=== PATIENT | female | born 1975 | race Caucasian/White ===

== ENCOUNTER 2020-11-21 14:01 | Inpatient (IN) | payer SELFPAY ==
[2020-11-21 15:12] LABS: Protime INR 1.18
[2020-11-21 15:15] LABS: Absolute Lymphocytes (CBC) 0.6 K/uL (0.7-4.9); Basophils % 0.1 % (0-1.3); Hematocrit 38.9 % (36.0-45.0); Lymphocytes % 7.9 % (15.3-44.8); MPV 7.2 fL (7.6-11.3); RBC Red Blood Cell Count 4.73 M/uL (3.86-4.86)
--- NOTE | 2020-11-21 15:19 | RAD REPORT ---
EXAM DESCRIPTION: RAD - Chest Single View - 11/21/2020 3:11 pm CLINICAL HISTORY: COUGH TECHNIQUE: AP portable chest image was obtained 11/21/2020 3:11 pm . FINDINGS: Lung volumes are low. Extensive airspace opacification is present slightly worse in the ri ght lung field. Lung findings are exaggerated due to the low lung volumes. In the acute clinical setting, COVID-19 pneumonia would be the primary consideration. Trachea is midl ine. There is no cavitation or mass in the lung parenchyma. Heart and vasculature are normal. No love urable pleural effusion and no pneumothorax. No acute bony abnormality seen. No acute aortic findings suspected. IMPRESSION: Moderate severity bilateral pneumonia pattern. In the current clinical environment, COVI D-19 pneumonia would be the primary consideration.
[2020-11-21 15:27] LABS: ALT/SGPT 94 U/L (12-78); AST/SGOT 55 U/L (15-37); Albumin 2.9 g/dL (3.4-5.0); Alkaline Phosphatase 80 U/L (45-117); BUN Blood Urea Nitrogen 10 mg/dL (7-18); Bicarbonate 29 mmol/L (21-32); Bilirubin Direct < 0.1 mg/dL (0-0.2); Bilirubin Total 0.3 mg/dL (0.2-1.0); Glucose Level 114 mg/dL (74-106); Magnesium 2.2 mg/dL (1.8-2.4); Potassium 3.8 mmol/L (3.5-5.1); Protein, Total 8.6 g/dL (6.4-8.2); Sodium Level 138 mmol/L (136-145)
[2020-11-21] MEDS ORDERED: dexAMETHasone 10 MG/ML VIAL ONE (15:41)
--- NOTE | 2020-11-21 16:05 | EDPHYS ---
Physician Documentation [facility] Name: Santa Stroud Age: 45 yrs Sex: Female : 1975 Arrival Date: 11/21/2020 Time: 14:02 Bed 13 Private MD: ED Physician Mal Hugo HPI: 11/21 14:32 This 45 yrs old Unknown Female presents to ER via Ambulatory with complaints of Covid + sp3 Diff Breathing. 14:32 45-year-old female with no significant medical problems on buspirone now presents sp3 approximately 7 days after being diagnosed with COVID-19 at [place] emergency department with chief complaint shortness of breath that is progressing along with cough and congestion and headache. Multiple family members also have COVID-19. Patient was not vaccinated for Covid. Patient denies chest pain, focal neuro symptoms, weakness, bleeding, hematuria, abdominal pain, loss of taste or smell, nausea, vomiting, diarrhea, or any other symptoms on review of systems at this time. Patient has room air pulse oxygenation of 71% on room air at triage where I saw the patient and patient is being placed in a room at this time and placed on oxygen.. Historical: - Allergies: 14:24 No Known Allergies; hb ROS: 14:34 Eyes: Negative for injury, pain, redness, and discharge, ENT: Negative for injury, sp3 pain, and discharge, Neck: Negative for injury, pain, and swelling, Cardiovascular: Negative for chest pain, palpitations, and edema, Abdomen/GI: Negative for abdominal pain, nausea, vomiting, diarrhea, and constipation, Back: Negative for injury and pain, Skin: Negative for injury, rash, and discoloration, Neuro: Negative for headache, weakness, numbness, tingling, and seizure, Allergy/Immunology: Negative for hives, rash, and allergies, Endocrine: Negative for neck swelling, polydipsia, polyuria, polyphagia, and marked weight changes, Hematologic/Lymphatic: Negative for swollen nodes, abnormal bleeding, and unusual bruising. 14:34 Constitutional: Positive for body aches, chills, fatigue, Negative for fever. 14:34 Respiratory: Positive for cough, dyspnea on exertion, shortness of breath. Exam: 14:35 Head/Face: Normocephalic, atraumatic. Eyes: Pupils equal round and reactive to light, sp3 extra-ocular motions intact. Lids and lashes normal. Conjunctiva and sclera are non-icteric and not injected. Cornea within normal limits. Periorbital areas with no swelling, redness, or edema. ENT: Nares patent. No nasal discharge, no septal abnormalities noted. External auditory canals are clear. Oropharynx with no redness, swelling, or masses, exudates, or evidence of obstruction, uvula midline. Mucous membranes moist. Neck: Trachea midline, no thyromegaly or masses palpated, and no cervical lymphadenopathy. Supple, full range of motion without nuchal rigidity, or vertebral point tenderness. No Meningismus. Abdomen/GI: Soft, non-tender, with normal bowel sounds. No distension or tympany. No guarding or rebound. No evidence of tenderness throughout. Back: No spinal tenderness. No costovertebral tenderness. Full range of motion. Skin: Warm, dry with normal turgor. Normal color with no rashes, no lesions, and no evidence of cellulitis. MS/ Extremity: Pulses equal, no cyanosis. Neurovascular intact. Full, normal range of motion. Neuro: Awake and alert, GCS 15, oriented to person, place, time, and situation. Cranial nerves II-XII grossly intact. Motor strength 5/5 in all extremities. Sensory grossly intact. Cerebellar exam normal. Normal gait. Psych: Awake, alert, with orientation to person, place and time. Behavior, mood, and affect are within normal limits. 14:35 Constitutional: The patient appears anxious. 14:35 Cardiovascular: Rate: tachycardic, Rhythm: regular, Edema: is not appreciated. 14:35 Respiratory: Respirations: labored breathing, Breath sounds: rhonchi, that are mild, are scattered. Vital Signs: 14:23 BP 147 / 89; Pulse 119; Resp 34; Temp 98.7; Pulse Ox 71% on R/A; Weight 113.4 kg; hb Height 5 ft. 4 in. (162.56 cm); Pain 8/10; 15:07 BP 105 / 82; Pulse 102; Resp 25; Temp 98.5(O); Pulse Ox 80% on 5 lpm NC; Weight 113 kg; ld1 Height 5 ft. 7 in. (170.18 cm); Pain 0/10; 15:22 Pulse 93; Resp 22; Pulse Ox 89% on 15% Non-rebreather mask; ld1 16:50 BP 116 / 78; Pulse 86; Resp 32; Pulse Ox 93% on 100% BiPAP; ld1 15:07 Body Mass Index 39.02 (113.00 kg, 170.18 cm) ld1 MDM: 14:23 Patient medically screened. sp3 14:36 ED course: Will place patient on oxygen to normalize oxygenation depending on O2 sp3 requirement will disposition home on home O2 versus admission to the hospital. Additional medications like steroids and Regeneron will be considered once work-up is complete. At this point I do not believe patient has a secondary process including acute coronary syndrome, bacterial pneumonia, pulmonary embolism, or any other significant critical diagnosis at this time.. 15:31 ED course: 15 L nonrebreather mask and patient still has an oxygenation level of 88% on sp3 room air. Will consult with respiratory on possible further escalation of oxygen delivery. Will CODE STATUS and intubation with patient as well.. 11/21 14:25 Order name: Basic Metabolic Panel sp3 11/21 14:25 Order name: CBC with Diff sp3 11/21 14:25 Order name: LFT's; Complete Time: 16:00 sp3 11/21 14:25 Order name: Magnesium; Complete Time: 16:00 sp3 11/21 14:25 Order name: PT-INR; Complete Time: 16:00 sp3 11/21 14:25 Order name: Basic Metabolic Panel; Complete Time: 16:00 EDMS 11/21 17:08 Order name: C-Reactive Protein EDMS 11/21 17:08 Order name: C-Reactive Protein EDMS 11/21 18:40 Order name: CBC Smear Scan EDMS 11/21 19:03 Order name: C-Reactive Protein EDMS 11/21 19:29 Order name: Procalcitonin EDMS 11/21 21:27 Order name: Glucose, Ancillary Testing EDMS 11/22 02:46 Order name: D-Dimer EDMS 11/22 02:47 Order name: CBC with Automated Diff EDMS 11/21 14:25 Order name: XRAY Chest (1 view); Complete Time: 16:00 sp3 11/21 17:10 Order name: Regular EDMS 11/22 03:12 Order name: Ferritin EDMS 11/22 08:05 Order name: Glucose, Ancillary Testing EDMS 11/22 12:16 Order name: Glucose, Ancillary Testing EDMS 11/22 17:02 Order name: Glucose, Ancillary Testing EDMS 11/22 22:20 Order name: Glucose, Ancillary Testing EDMS 11/23 03:02 Order name: CBC with Automated Diff EDMS 11/23 03:24 Order name: Comprehensive Metabolic Panel EDMS 11/23 03:24 Order name: C-Reactive Protein EDMS 11/23 03:24 Order name: Magnesium EDMS 11/23 03:24 Order name: Ferritin EDMS 11/23 07:57 Order name: Glucose, Ancillary Testing EDMS 11/23 09:21 Order name: RAD EDMS 11/23 13:09 Order name: Glucose, Ancillary Testing EDMS 11/21 14:25 Order name: Cardiac monitoring; Complete Time: 15:05 sp3 11/21 14:25 Order name: IV Saline Lock; Complete Time: 15:05 sp3 11/21 14:25 Order name: Labs collected and sent; Complete Time: 15:05 sp3 11/21 14:25 Order name: O2 Per Protocol; Complete Time: 15:05 sp3 11/21 14:25 Order name: O2 Sat Monitoring; Complete Time: 15:05 sp3 Administered Medications: 15:21 Drug: Decadron - Dexamethasone 10 mg Route: IVP; Site: right antecubital; ld1 15:22 Follow up: Response: No adverse reaction ld1 Disposition Summary: 11/21/20 16:04 Hospitalization Ordered Hospitalization Status: Inpatient Admission sp3 Provider: Pravin Bassett sp3 Condition: Serious sp3 Problem: new sp3 Symptoms: have improved sp3 Bed/Room Type: Standard sp3 Location: Telemetry/MedSurg (Inpatient)(11/23/20 12:12) Room Assignment: 408(11/23/20 13:15) bd Diagnosis - Viral pneumonia, unspecified sp3 - Acute respiratory failure with hypoxia sp3 Forms: - Medication Reconciliation Form sp3 - SBAR form sp3 Signatures: Dispatcher [employer] EDLA Nerissa Colin Shelby, RN RN ss Joi Hernández RN RN Camryn Boyd RN RN ld1 Mal Hugo sp3 Corrections: (The following items were deleted from the chart) 18:32 16:04 Telemetry/MedSurg (Inpatient) sp3 bd 18:32 16:04 sp3 bd 11/23 12:12 16 18:32 BR ER HOLD bd 11/23 12:12 11/21 18:32 ERHOLD- bd 11/23 13:15 12:[address] [place] [address]
--- NOTE | 2020-11-21 16:05 | ER ---
Nurse's Notes [facility] Name: Santa Stroud Age: 45 yrs Sex: Female : 1975 Arrival Date: 11/21/2020 Time: 14:02 Bed 13 Private MD: Diagnosis: Viral pneumonia, unspecified;Acute respiratory failure with hypoxia Presentation: 11/21 14:17 Chief complaint: Worsening SOB x 3 days. COVID +. Coronavirus screen: Client reports hb previous positive COVID test result. Ebola Screen: No symptoms or risks identified at this time. 14:17 Method Of Arrival: Ambulatory hb 14:23 Risk Assessment: Do you want to hurt yourself or someone else? Patient reports no hb desire to harm self or others. Onset of symptoms was November 16, 2020. 14:23 Acuity: PIA 2 hb Historical: - Allergies: 14:24 No Known Allergies; hb Screenin:07 Abuse screen: Denies threats or abuse. Denies injuries from another. Nutritional ld1 screening: No deficits noted. Tuberculosis screening: No symptoms or risk factors identified. Fall Risk None identified. Assessment: 15:07 General: Appears in no apparent distress. uncomfortable, Behavior is calm, cooperative, ld1 appropriate for age. Pain: Denies pain. Neuro: Level of Consciousness is awake, alert, obeys commands, Oriented to person, place, time, situation. Cardiovascular: Capillary refill < 3 seconds Patient's skin is warm and dry. Respiratory: Airway is patent Respiratory effort is even, labored, Respiratory pattern is regular, symmetrical. Respiratory: Reports cough that is non-productive. GI: Abdomen is round non-distended. : No signs and/or symptoms were reported regarding the genitourinary system. EENT: No signs and/or symptoms were reported regarding the EENT system. Derm: No signs and/or symptoms reported regarding the dermatologic system. Musculoskeletal: No signs and/or symptoms reported regarding the musculoskeletal system. 15:10 Reassessment: Notified ERP of VS. See [facility] for orders. ld1 15:22 Reassessment: Patient appears in no apparent distress at this time. Patient and/or ld1 family updated on plan of care and expected duration. Pain level reassessed. 15:22 Reassessment: Respiratory therapist at bedside. ld1 16:50 Reassessment: Patient appears in no apparent distress at this time. No changes from ld1 previously documented assessment. Patient and/or family updated on plan of care and expected duration. Pain level reassessed. Vital Signs: 14:23 BP 147 / 89; Pulse 119; Resp 34; Temp 98.7; Pulse Ox 71% on R/A; Weight 113.4 kg; hb Height 5 ft. 4 in. (162.56 cm); Pain 8/10; 15:07 BP 105 / 82; Pulse 102; Resp 25; Temp 98.5(O); Pulse Ox 80% on 5 lpm NC; Weight 113 kg; ld1 Height 5 ft. 7 in. (170.18 cm); Pain 0/10; 15:22 Pulse 93; Resp 22; Pulse Ox 89% on 15% Non-rebreather mask; ld1 16:50 BP 116 / 78; Pulse 86; Resp 32; Pulse Ox 93% on 100% BiPAP; ld1 15:07 Body Mass Index 39.02 (113.00 kg, 170.18 cm) ld1 ED Course: 14:02 Patient arrived in ED. ds1 14:23 Mal Hugo is Attending Physician. sp3 14:24 Triage completed. hb 14:24 Arm band placed on. hb 15:03 Camryn Boyd, MAGDALENE is Primary Nurse. ld1 15:07 Patient has correct armband on for positive identification. Placed in gown. Bed in low ld1 position. Call light in reach. Side rails up X2. electric accounting machine operator on. Pulse ox on. NIBP on. Door closed. Noise minimized. Warm blanket given. 15:07 No provider procedures requiring assistance completed. Inserted saline lock: 20 gauge ld1 in right antecubital area, using aseptic technique. Blood collected. 15:11 XRAY Chest (1 view) In Process Unspecified. EDMS 16:04 Pravin Bassett MD is Hospitalizing Provider. sp3 18:39 C-Reactive Protein Sent. mh5 18:39 C-Reactive Protein Sent. mh5 18:40 Basic Metabolic Panel Sent. mh5 11/22 07:47 Primary Nurse role handed off by Camryn Boyd, MAGDALENE bd 19:28 Isela Callaway, RN is Primary Nurse. bs2 11/23 11:29 Primary Nurse role handed off by Isela Callaway, RN sv Administered Medications: 11/21 15:21 Drug: Decadron - Dexamethasone 10 mg Route: IVP; Site: right antecubital; ld1 15:22 Follow up: Response: No adverse reaction ld1 Outcome: 16:04 Decision to Hospitalize by Provider. sp3 11/23 14:24 Patient left the ED. tw2 Signatures: Dispatcher [employer] EDMS Nerissa Colin Stephanie, RN RN Ester Jenkins ds1 Joi Hernández RN RN Jessica Hill RN RN tw2 Nubia Cuevas Camryn Constantino RN RN ld1 Mal Hugo sp3 Isela Callaway, MAGDALENE RN bs2
[2020-11-21] MEDS ORDERED: GLUCAGON 1 MG/VIAL IM PRN (17:05)
[2020-11-21] MEDS ORDERED: D50W 25 GM/50 ML SYRINGE IV PRN (17:05)
--- NOTE | 2020-11-21 17:17 | P.HP ---
Certification for Inpatient With expected LOS: >2 Midnights Patient will require the following post-hospital care: None Practitioner: I am a practitioner with admitting privileges, knowledge of patient current condition, hospital course, and medical plan of care. Services: Services provided to patient in accordance with Admission requirements found in Title 42 Section 412.3 of the Code of Federal Regulations Patient History Date of Service: 11/21/20 Reason for admission: COVID-19 disease management History of Present Illness: 45-year-old female patient was no significant medical history was evaluated in the ER for episode of cough shortness of breath and lethargy. She was diagnosed with COVID-19 disease at [facility] 6 days prior. She reports issues with general body ache, weakness, shortness of breath and cough. She also reported also that multiple family members were diagnosed with COVID-19 disease and that she is unvaccinated. She was found to have significant hypoxia with pulse oximetry of 71% on room air so she was started on BiPAP therapy. Imaging studies done in the ER was concerning for severe COVID-19 disease chest x-ray showed bilateral opacification depicting pneumonia. She was asked to be admitted for inpatient care. She denies of an episode of chest discomfort, diarrhea, nausea, vomiting. She does have poor appetite. Review of Systems General: Weakness, Malaise Eyes: Unremarkable ENT: Nose Congestion Respiratory: Cough, Shortness of Breath, SOB with Excertion Cardiovascular: Unremarkable Gastrointestinal: Unremarkable Musculoskeletal: Unremarkable Integumentary: Unremarkable Neurological: Unremarkable Lymphatics: Unremarkable Physical Examination - Physical Exam General: Oriented x3, Moderate distress HEENT: Atraumatic, Normocephalic Neck: Supple Respiratory: Diminished, Crackles/rales Cardiovascular: Regular rate/rhythm, Normal S1 S2 Gastrointestinal: Soft and benign Musculoskeletal: No clubbing, No swelling Neurological: Normal strength at 5/5 x4 extr, Cranial nerves 3-12 intact - Studies Laboratory Data (last 24 hrs) 11/21/20 14:54: PT 13.6 H, INR 1.18 11/21/20 14:54: WBC 7.10, Hgb 12.9, Hct 38.9, Plt Count 262 11/21/20 14:54: Sodium 138, Potassium 3.8, BUN 10, Creatinine 0.59, Glucose 114 H, Magnesium 2.2, Total Bilirubin 0.3, AST 55 H, ALT 94 H, Alkaline Phosphatase 80 Assessment and Plan - Plan COVID-19 diseasepatient has symptomatic erazo virus disease which is deemed severe. Steroid therapy started with dexamethasone 6 mg IV daily. We will continue other supportive therapy with zinc, vitamin C, melatonin. We will continue as needed Tylenol for pain control. We will can strongly consider Remdesivir therapy based on her symptomatology. Pneumonia secondary to COVID-19 diseasewe will start empiric therapy with azithromycin and ceftriaxone We will continue oxygen supplementally for hypoxia Respiratory failure with hypoxiapresently on BiPAP therapy. We will wean off as tolerated. We will have on breathing treatments on as-needed basis only. Discharge Plan: Home - Advance Directives Does patient have a Living Will: No Does patient have a Durable POA for Healthcare: No - Code Status/Comfort Care Code Status Assessed: Yes Code Status: Full Code
[2020-11-21 18:39] LABS: Blood Morphology Comment NOT SEEN (NOT SEEN); Platelet Estimate ADEQ; White Blood Cell Scan OK (OK)
[2020-11-21] MEDS: CEFTRIAXONE/SWI 1gm 1 GM/10 ML SYR IV SCH (19:00)
[2020-11-21] MEDS: AZITHROMYCIN IV 500 MG in NA CHLORIDE 0.9% 250 ML IVPB SCH (19:00)
[2020-11-21] MEDS ORDERED: CEFTRIAXONE/SWI 1gm 1 GM/10 ML SYR ONE (19:11)
[2020-11-21] MEDS ORDERED: AZITHROMYCIN 500 MG INJ IVPB ONE (19:11)
[2020-11-21] MEDS ORDERED: NA CHLORIDE 0.9% 250 ML ONE (19:11)
[2020-11-21] MEDS: FAMOTIDINE 20 MG/2 ML VIAL IV SCH (21:00)
[2020-11-21] MEDS: ENOXAPARIN 40 MG/0.4 ML SQ SCH (21:00)
[2020-11-21] MEDS: INSULIN -REGULAR HUMAN 50 UNIT/0.5 ML ML SQ SCH (21:00)
[2020-11-21] MEDS ORDERED: MELATONIN 5 MG TABLET PO SCH (21:00)
[2020-11-21] MEDS ORDERED: ENOXAPARIN 40 MG/0.4 ML SQ ONE (21:41)
[2020-11-21] MEDS ORDERED: FAMOTIDINE 20 MG/2 ML VIAL IV ONE (21:42)
[2020-11-22 02:38] LABS: Absolute Lymphocytes (CBC) 0.6 K/uL (0.7-4.9); Basophils % 0.2 % (0-1.3); Hematocrit 38.1 % (36.0-45.0); Lymphocytes % 10.7 % (15.3-44.8); MPV 7.3 fL (7.6-11.3); RBC Red Blood Cell Count 4.62 M/uL (3.86-4.86)
[2020-11-22 03:12] LABS: Ferritin 355.9 ng/mL (8-388)
--- NOTE | 2020-11-22 06:52 | P.PN ---
Subjective Date of Service: 11/22/20 Chief Complaint: COVID-19 disease management Subjective: Other (100% Fio2 BIPAP overnight. desaturates quickly when mask removed, hasnt had much PO intake.) Review of Systems 10-point ROS is otherwise unremarkable Physical Examination - Vital Signs Temperature: 98.9 F Blood Pressure: 129/84 Pulse: 75 Respirations: 28 Pulse Ox (%): 89 - Studies Laboratory Data (last 24 hrs) 11/21/20 14:54: PT 13.6 H, INR 1.18 11/21/20 14:54: WBC 7.10, Hgb 12.9, Hct 38.9, Plt Count 262 11/21/20 14:54: Sodium 138, Potassium 3.8, BUN 10, Creatinine 0.59, Glucose 114 H, Magnesium 2.2, Total Bilirubin 0.3, AST 55 H, ALT 94 H, Alkaline Phosphatase 80 Assessment & Plan Physician Review Additional Text: Physical Exam General: Oriented x3, Moderate distress HEENT: Sclera anicteric, normal conjunctiva Respiratory: Crackles bilaterally, on BiPAP; FiO2 100% Cardiovascular: Regular rate/rhythm, Normal S1 S2 Gastrointestinal: Soft and benign, nontender Musculoskeletal: No joint swelling Neurological: Moves all extremities Problem list Acute hypoxemic respiratory failure secondary to COVID-19 pneumonia Morbid obesity Continue treatment per Covid protocol, steroids, oxygen supplementation, vitamin supplementation Significantly elevated inflammatory markers. Continue baricitinib Pulmonology consulted Wean oxygen as tolerated Patient becomes hypoxic rather quickly with minimal movement. Agreeable to Dobbhoff placement VTE: lovenox Code: full Dispo: anticipate hospitalization > 2 days Time Spent Managing Pts Care (In Minutes): 35
[2020-11-22] MEDS: INSULIN -REGULAR HUMAN 50 UNIT/0.5 ML ML SQ SCH ×4 (07:30→21:00)
[2020-11-22] MEDS ORDERED: dexAMETHasone 10 MG/ML VIAL ONE (07:56)
[2020-11-22] MEDS ORDERED: FAMOTIDINE 20 MG TAB ONE ×2 (07:56→21:12)
[2020-11-22] MEDS ORDERED: ENOXAPARIN 40 MG/0.4 ML SQ ONE ×2 (07:56→21:13)
[2020-11-22] MEDS ORDERED: ZINC SULFATE 220 MG CAP ONE (07:56)
[2020-11-22] MEDS ORDERED: ASCORBIC ACID 500 MG TABLET ONE (07:56)
[2020-11-22] MEDS: FAMOTIDINE 20 MG/2 ML VIAL IV SCH (08:36)
[2020-11-22] MEDS: ZINC SULFATE 220 MG CAP PO SCH (08:36)
[2020-11-22] MEDS: AZITHROMYCIN IV 500 MG in NA CHLORIDE 0.9% 250 ML IVPB SCH (08:36)
[2020-11-22] MEDS: ASCORBIC ACID 500 MG TABLET PO SCH (08:36)
[2020-11-22] MEDS: ENOXAPARIN 40 MG/0.4 ML SQ SCH ×2 (08:36→21:00)
[2020-11-22] MEDS: BARICITINIB 2 MG TABLET PO SCH (08:36)
[2020-11-22] MEDS ORDERED: dexAMETHasone 10 MG/ML VIAL IV SCH (09:00)
[2020-11-22] MEDS ORDERED: HYDROMORPHONE HCL 2 MG/ML inj ONE (11:20)
[2020-11-22] MEDS: CEFTRIAXONE/SWI 1gm 1 GM/10 ML SYR IV SCH (19:00)
[2020-11-22] MEDS ORDERED: MORPHINE 2 MG/ML SYR IV PRN (19:32)
--- NOTE | 2020-11-22 20:19 | P.CNS ---
Date of Consult: 11/22/20 Reason for Consult: COVID penumonia Chief Complaint: COVID-19 disease management History of Present Illness: [id number] no sig PMHAW COVID penumonia and resp failure Allergies No Known Allergies Allergy (Unverified 11/21/20 18:03) Review of Systems General: Weakness Respiratory: Shortness of Breath Physical Examination Temp Pulse Resp BP Pulse Ox 98.5 F 81 28 H 126/92 H 94 11/22/20 16:00 11/22/20 16:00 11/22/20 16:00 11/22/20 16:00 11/22/20 16:00 General: Alert, Oriented x3, Cooperative, Mild distress - Problems (1) Pneumonia due to COVID-19 virus Current Visit: Yes Status: Acute Plan: Resp failure from COVIDvery hypoxic/ CXRY COVID/ DC Antibiotics
[2020-11-22] MEDS: METHYLPREDNISOLONE 125 MG INJ IV SCH (21:00)
[2020-11-22] MEDS: THIAMINE HCL 100 MG TABLET PO SCH (21:00)
[2020-11-22] MEDS: FAMOTIDINE 20 MG TAB PO SCH (21:00)
[2020-11-22] MEDS ORDERED: MORPHINE 2 MG/ML SYR ONE (21:12)
[2020-11-22] MEDS ORDERED: THIAMINE HCL 100 MG TABLET ONE (21:12)
[2020-11-22] MEDS ORDERED: METHYLPREDNISOLONE 40 MG INJ ONE (21:12)
[2020-11-23 02:59] LABS: Absolute Lymphocytes (CBC) 0.6 K/uL (0.7-4.9); Lymphocytes % 7.7 % (15.3-44.8); RBC Red Blood Cell Count 4.76 M/uL (3.86-4.86)
[2020-11-23 03:23] LABS: ALT/SGPT 119 U/L (12-78); AST/SGOT 70 U/L (15-37); Albumin 2.6 g/dL (3.4-5.0); Alkaline Phosphatase 75 U/L (45-117); BUN Blood Urea Nitrogen 17 mg/dL (7-18); Bicarbonate 30 mmol/L (21-32); Bilirubin Total 0.3 mg/dL (0.2-1.0); Ferritin 458.6 ng/mL (8-388); Glucose Level 146 mg/dL (74-106); Magnesium 2.5 mg/dL (1.8-2.4); Potassium 4.5 mmol/L (3.5-5.1); Protein, Total 8.3 g/dL (6.4-8.2); Sodium Level 140 mmol/L (136-145)
--- NOTE | 2020-11-23 06:32 | P.PN ---
Subjective Date of Service: 11/23/20 Chief Complaint: COVID-19 disease management Subjective: Improving (feels better, dry mouth, no significant change in O2 requirement. desaturates quickly off mask, patient amenable to dobhoff placement) Review of Systems 10-point ROS is otherwise unremarkable Physical Examination - Vital Signs Temperature: 97.6 F Blood Pressure: 96/59 Pulse: 70 Respirations: 25 Pulse Ox (%): 94 Assessment & Plan Physician Review Additional Text: Physical Exam General: Oriented x3, NAD HEENT: Sclera anicteric, normal conjunctiva Respiratory: nonlabored BiPAP; FiO2 100% Cardiovascular: Regular rate/rhythm, Normal S1 S2 Gastrointestinal: Soft and benign, nontender Musculoskeletal: No joint swelling Neurological: Moves all extremities Problem list Acute hypoxemic respiratory failure secondary to COVID-19 pneumonia Morbid obesity Continue treatment per Covid protocol, steroids, oxygen supplementation, vitamin supplementation Significantly elevated inflammatory markers. Continue baricitinib Pulmonology consulted Wean oxygen as tolerated Patient becomes hypoxic rather quickly with minimal movement. Agreeable to Dobbhoff placement filling mixer consulted for tube feeds VTE: lovenox Code: full Dispo: anticipate hospitalization > 2 days Time Spent Managing Pts Care (In Minutes): 40
[2020-11-23] MEDS: INSULIN -REGULAR HUMAN 50 UNIT/0.5 ML ML SQ SCH ×4 (07:30→21:00)
[2020-11-23] MEDS ORDERED: ASCORBIC ACID 500 MG TABLET ONE (07:56)
[2020-11-23] MEDS ORDERED: ENOXAPARIN 40 MG/0.4 ML SQ ONE (07:57)
[2020-11-23] MEDS ORDERED: ZINC SULFATE 220 MG CAP ONE (07:57)
[2020-11-23] MEDS ORDERED: THIAMINE HCL 100 MG TABLET ONE (07:57)
[2020-11-23] MEDS ORDERED: METHYLPREDNISOLONE 125 MG INJ ONE (08:16)
[2020-11-23] MEDS ORDERED: FAMOTIDINE 20 MG/2 ML VIAL IV ONE (08:42)
[2020-11-23] MEDS: ENOXAPARIN 40 MG/0.4 ML SQ SCH ×2 (09:00→20:55)
[2020-11-23] MEDS: THIAMINE HCL 100 MG TABLET PO SCH ×2 (09:00→21:04)
[2020-11-23] MEDS: METHYLPREDNISOLONE 125 MG INJ IV SCH ×3 (09:00→21:03)
[2020-11-23] MEDS: ZINC SULFATE 220 MG CAP PO SCH (09:00)
[2020-11-23] MEDS: ASCORBIC ACID 500 MG TABLET PO SCH (09:00)
[2020-11-23] MEDS: BARICITINIB 2 MG TABLET PO SCH (09:00)
[2020-11-23] MEDS: FAMOTIDINE 20 MG TAB PO SCH ×2 (09:00→21:05)
--- NOTE | 2020-11-23 09:20 | RAD REPORT ---
EXAM DESCRIPTION: RAD - Abdomen 1 View (KUB) - 11/23/2020 9:14 am CLINICAL HISTORY: dobhoff tube placement COMPARISON: Chest Single View dated 11/21/2020 FINDINGS: Nonobstructive bowel gas pattern. No acute osseous abnormality.Visualized lungs are unrema rkable.No abnormal calcifications. The weighted feeding tube tip overlies stomach. IMPRESSION: Nonobstructive bowel gas pattern. Weighted feeding tube tip overlies the stomach in sati sfactory position.
[2020-11-23] MEDS: ACETAMINOPHEN 325 MG TABLET PO PRN (21:04)
[2020-11-24 03:56] LABS: Hematocrit 38.1 % (36.0-45.0); MPV 6.7 fL (7.6-11.3); RBC Red Blood Cell Count 4.66 M/uL (3.86-4.86)
[2020-11-24 04:23] LABS: BUN Blood Urea Nitrogen 23 mg/dL (7-18); Bicarbonate 30 mmol/L (21-32); Glucose Level 148 mg/dL (74-106); Magnesium 2.6 mg/dL (1.8-2.4); Potassium 4.1 mmol/L (3.5-5.1); Sodium Level 139 mmol/L (136-145)
[2020-11-24] MEDS: INSULIN -REGULAR HUMAN 50 UNIT/0.5 ML ML SQ SCH ×4 (07:30→21:00)
[2020-11-24] MEDS: FAMOTIDINE 20 MG TAB PO SCH ×2 (08:40→19:54)
[2020-11-24] MEDS: ZINC SULFATE 220 MG CAP PO SCH (08:40)
[2020-11-24] MEDS: ENOXAPARIN 40 MG/0.4 ML SQ SCH ×2 (08:40→19:53)
[2020-11-24] MEDS: THIAMINE HCL 100 MG TABLET PO SCH ×2 (08:40→19:54)
[2020-11-24] MEDS: ASCORBIC ACID 500 MG TABLET PO SCH (08:40)
[2020-11-24] MEDS: METHYLPREDNISOLONE 125 MG INJ IV SCH ×3 (08:40→19:54)
[2020-11-24] MEDS: BARICITINIB 2 MG TABLET PO SCH (09:45)
[2020-11-24] MEDS ORDERED: VITAL HP 1,000 ML BOT RTH SCH (12:00)
--- NOTE | 2020-11-24 14:02 | P.PN ---
Subjective Date of Service: 11/24/20 Chief Complaint: COVID-19 disease management High Concentrationof Oxygen Review of Systems Respiratory: Shortness of Breath Physical Examination - Vital Signs Temperature: 98.0 F Blood Pressure: 121/67 Pulse: 83 Respirations: 16 Pulse Ox (%): 90 - Physical Exam General: Alert, Oriented x3, Cooperative Assessment & Plan - Problems (Diagnosis) (1) Pneumonia due to COVID-19 virus Current Visit: Yes Status: Acute Plan: Resp failure / on Max TX Continue with weaning/ Labs reviewed
--- NOTE | 2020-11-24 14:25 | P.PN ---
Subjective Date of Service: 11/24/20 Chief Complaint: COVID-19 disease management Subjective: Improving (Oxygen requirement decreasing, inflammatory markers decreasing. Patient feeling better) Review of Systems 10-point ROS is otherwise unremarkable Physical Examination - Vital Signs Temperature: 98.0 F Blood Pressure: 121/67 Pulse: 83 Respirations: 16 Pulse Ox (%): 90 Assessment & Plan Physician Review Additional Text: Physical Exam General: Oriented x3, NAD HEENT: Sclera anicteric, normal conjunctiva Respiratory: nonlabored BiPAP; FiO2 80% Cardiovascular: Regular rate/rhythm, Normal S1 S2 Gastrointestinal: Soft and benign, nontender Musculoskeletal: No joint swelling Neurological: Moves all extremities Problem list Acute hypoxemic respiratory failure secondary to COVID-19 pneumonia Morbid obesity Continue treatment per Covid protocol, steroids, oxygen supplementation, vitamin supplementation Significantly elevated inflammatory markers. Continue baricitinib Inflammatory markers improving Wean oxygen as tolerated May be able to try high flow nasal cannula later today, if tolerates 2 meals, will consider discontinuing Dobbhoff Pulmonology consulted VTE: lovenox Code: full Dispo: anticipate discharge home with home O2 in 3-4 days Time Spent Managing Pts Care (In Minutes): 40
[2020-11-24] MEDS: ASPIRIN EC 81 MG TAB PO SCH (16:44)
[2020-11-24] MEDS: BUSPIRONE HCL 15 MG TABLET PO SCH (19:53)
[2020-11-24] MEDS: ACETAMINOPHEN 325 MG TABLET PO PRN (19:54)
[2020-11-24] MEDS ORDERED: LORazepam 2 MG/ML VIAL IV ONE (20:40)
[2020-11-25 04:37] LABS: Hematocrit 39.4 % (36.0-45.0); MPV 6.8 fL (7.6-11.3); RBC Red Blood Cell Count 4.79 M/uL (3.86-4.86)
[2020-11-25 04:57] LABS: BUN Blood Urea Nitrogen 20 mg/dL (7-18); Bicarbonate 26 mmol/L (21-32); Glucose Level 146 mg/dL (74-106); Magnesium 2.3 mg/dL (1.8-2.4); Sodium Level 138 mmol/L (136-145)
[2020-11-25 05:36] LABS: Urine Appearance CLEAR (Clear); Urine Bilirubin NEGATIVE (Negative); Urine Blood 2+ (Negative); Urine Color YELLOW (Yellow); Urine Glucose NEGATIVE (Negative); Urine Protein NEGATIVE (Negative); Urine Specific Gravity 1.025 (1.005-1.030); Urine Urobilinogen 0.2 mg/dL (0.2-1.0)
[2020-11-25 06:10] LABS: Urine Bacteria <20 /HPF (<20)
[2020-11-25] MEDS: INSULIN -REGULAR HUMAN 50 UNIT/0.5 ML ML SQ SCH ×4 (07:30→21:00)
--- NOTE | 2020-11-25 07:37 | RAD REPORT ---
EXAM DESCRIPTION: RAD - Chest Single View - 11/25/2020 5:13 am CLINICAL HISTORY: COVIDpneumonia COMPARISON: November 21 TECHNIQUE: AP portable chest image was obtained 11/25/2020 5:13 am . FINDINGS: Lung volumes are low accentuating the lung parenchymal opacification. Significant bilatera l pneumonia findings are present. Left apex is relatively spared. Pattern is not clearly different fr om the prior study. Heart and vasculature are normal. No measurable pleural effusion and no pneumotho rax. No acute bony abnormality seen. No acute aortic findings suspected. IMPRESSION: Stable, moderate severity bilateral COVID-19 pneumonia pattern.
[2020-11-25] MEDS: FAMOTIDINE 20 MG TAB PO SCH ×2 (10:01→19:39)
[2020-11-25] MEDS: ENOXAPARIN 40 MG/0.4 ML SQ SCH (10:01)
[2020-11-25] MEDS: ZINC SULFATE 220 MG CAP PO SCH (10:01)
[2020-11-25] MEDS: BUSPIRONE HCL 15 MG TABLET PO SCH ×2 (10:01→19:38)
[2020-11-25] MEDS: ASCORBIC ACID 500 MG TABLET PO SCH (10:01)
[2020-11-25] MEDS: BARICITINIB 2 MG TABLET PO SCH (10:02)
[2020-11-25] MEDS: METHYLPREDNISOLONE 125 MG INJ IV SCH ×3 (10:02→19:40)
[2020-11-25] MEDS: THIAMINE HCL 100 MG TABLET PO SCH ×2 (10:02→19:41)
[2020-11-25] MEDS: ASPIRIN EC 81 MG TAB PO SCH (13:15)
--- NOTE | 2020-11-25 15:27 | P.PN ---
Subjective Date of Service: 11/25/20 Chief Complaint: COVID-19 disease management Subjective: Improving (Patient reports breathing much more comfortably. Tolerating high flow nasal cannula. Able to eat more now. No new complaints/issues.) Review of Systems 10-point ROS is otherwise unremarkable Physical Examination - Vital Signs Temperature: 98 F Blood Pressure: 90/51 Pulse: 79 Respirations: 23 Pulse Ox (%): 96 Assessment & Plan Physician Review Additional Text: Physical Exam General: Oriented x3, NAD HEENT: Sclera anicteric, normal conjunctiva Respiratory: nonlabored HFNC, FiO2 100% Cardiovascular: Regular rate/rhythm, Normal S1 S2 Gastrointestinal: Soft and benign, nontender Musculoskeletal: No joint swelling Neurological: Moves all extremities Problem list Acute hypoxemic respiratory failure secondary to COVID-19 pneumonia Morbid obesity Continue treatment per Covid protocol, steroids, oxygen supplementation, vitamin supplementation Significantly elevated inflammatory markers. Continue baricitinib Inflammatory markers improving Wean oxygen as tolerated Tolerating high flow nasal cannula now, able to take more p.o. intake. Dobbhoff removed 11/24 Pulmonology consulted VTE: Alanna DVT prophylaxis Code: full Dispo: anticipate discharge home with home O2 in 3-4 days Time Spent Managing Pts Care (In Minutes): 35
--- NOTE | 2020-11-25 19:04 | P.PN ---
Subjective Date of Service: 11/25/20 Chief Complaint: COVID-19 disease management Resp failure improving/ CXRY Seere COVID Review of Systems General: Weakness Respiratory: Shortness of Breath Physical Examination - Vital Signs Temperature: 97.4 F Blood Pressure: 101/53 Pulse: 87 Respirations: 26 Pulse Ox (%): 91 - Physical Exam General: Alert, Oriented x3, Cooperative Assessment & Plan - Problems (Diagnosis) (1) Pneumonia due to COVID-19 virus Current Visit: Yes Status: Acute Plan: Improving/ on max tx/ o2 requirement declining
[2020-11-25] MEDS: APIXABAN 2.5 MG TABLET PO SCH (19:39)
[2020-11-25] MEDS: ACETAMINOPHEN 325 MG TABLET PO PRN (19:41)
[2020-11-25] MEDS: LORazepam 2 MG/ML VIAL IV PRN (20:43)
[2020-11-26 05:53] LABS: BUN Blood Urea Nitrogen 17 mg/dL (7-18); Bicarbonate 26 mmol/L (21-32); Glucose Level 159 mg/dL (74-106); Potassium 3.8 mmol/L (3.5-5.1); Sodium Level 137 mmol/L (136-145)
--- NOTE | 2020-11-26 06:17 | P.PN ---
Subjective Date of Service: 11/26/20 Chief Complaint: COVID-19 disease management Subjective: Improving (Feeling better today, appetite improved, urinating without issue, had BM overnight/this morning) Review of Systems 10-point ROS is otherwise unremarkable Physical Examination - Vital Signs Temperature: 97.1 F Blood Pressure: 116/65 Pulse: 73 Respirations: 18 Pulse Ox (%): 92 Assessment & Plan Physician Review Additional Text: Physical Exam General: Oriented x3, NAD HEENT: Sclera anicteric, normal conjunctiva Respiratory: nonlabored HFNC, FiO2 70 % Cardiovascular: Regular rate/rhythm, Normal S1 S2 Gastrointestinal: Soft and benign, nontender Neurological: Moves all extremities, normal affect, normal speech Problem list Acute hypoxemic respiratory failure secondary to COVID-19 pneumonia Morbid obesity Continue treatment per Covid protocol, steroids, oxygen supplementation, vitamin supplementation Significantly elevated inflammatory markers on admission. Continue baricitinib Inflammatory markers improving Wean oxygen as tolerated Tolerating high flow nasal cannula now, able to take more p.o. intake. Dobbhoff removed 11/24 Pulmonology consulted VTE: Eliquis Code: full Dispo: anticipate discharge home with home O2 in ~2-3 days Time Spent Managing Pts Care (In Minutes): 40
[2020-11-26] MEDS: INSULIN -REGULAR HUMAN 50 UNIT/0.5 ML ML SQ SCH ×4 (07:30→22:36)
[2020-11-26] MEDS: ASCORBIC ACID 500 MG TABLET PO SCH (10:48)
[2020-11-26] MEDS: APIXABAN 2.5 MG TABLET PO SCH ×2 (10:48→22:35)
[2020-11-26] MEDS: METHYLPREDNISOLONE 125 MG INJ IV SCH ×3 (10:48→22:35)
[2020-11-26] MEDS: FAMOTIDINE 20 MG TAB PO SCH ×2 (10:48→22:35)
[2020-11-26] MEDS: BUSPIRONE HCL 15 MG TABLET PO SCH ×2 (10:49→22:35)
[2020-11-26] MEDS: BARICITINIB 2 MG TABLET PO SCH (10:49)
[2020-11-26] MEDS: ASPIRIN EC 81 MG TAB PO SCH (10:49)
[2020-11-26] MEDS: ZINC SULFATE 220 MG CAP PO SCH (10:49)
[2020-11-26] MEDS: THIAMINE HCL 100 MG TABLET PO SCH ×2 (10:49→22:35)
[2020-11-26] MEDS: LORazepam 2 MG/ML VIAL IV PRN (22:37)
[2020-11-27 04:21] LABS: Absolute Lymphocytes (CBC) 0.5 K/uL (0.7-4.9); Basophils % 0.2 % (0-1.3); Lymphocytes % 5.5 % (15.3-44.8); MPV 6.7 fL (7.6-11.3); RBC Red Blood Cell Count 4.68 M/uL (3.86-4.86)
[2020-11-27 04:46] LABS: BUN Blood Urea Nitrogen 15 mg/dL (7-18); Bicarbonate 27 mmol/L (21-32); Ferritin 270.2 ng/mL (8-388); Glucose Level 165 mg/dL (74-106); Potassium 3.8 mmol/L (3.5-5.1); Sodium Level 139 mmol/L (136-145)
[2020-11-27] MEDS: INSULIN -REGULAR HUMAN 50 UNIT/0.5 ML ML SQ SCH ×4 (07:30→21:00)
[2020-11-27] MEDS: BARICITINIB 2 MG TABLET PO SCH (09:37)
[2020-11-27] MEDS: BUSPIRONE HCL 15 MG TABLET PO SCH ×2 (09:37→21:55)
[2020-11-27] MEDS: METHYLPREDNISOLONE 125 MG INJ IV SCH ×3 (09:37→21:56)
[2020-11-27] MEDS: ASCORBIC ACID 500 MG TABLET PO SCH (09:37)
[2020-11-27] MEDS: THIAMINE HCL 100 MG TABLET PO SCH ×2 (09:37→21:56)
[2020-11-27] MEDS: ASPIRIN EC 81 MG TAB PO SCH (09:42)
[2020-11-27] MEDS: APIXABAN 2.5 MG TABLET PO SCH ×2 (09:42→21:56)
[2020-11-27] MEDS: ZINC SULFATE 220 MG CAP PO SCH (09:42)
[2020-11-27] MEDS: FAMOTIDINE 20 MG TAB PO SCH ×2 (12:49→21:56)
--- NOTE | 2020-11-27 14:58 | P.PN ---
Subjective Date of Service: 11/27/20 Chief Complaint: COVID-19 disease management Subjective: Improving (Patient feeling better, breathing more comfortably, down to 6 L nasal cannula. Inflammatory markers improved appetite improved) Review of Systems 10-point ROS is otherwise unremarkable Physical Examination - Vital Signs Temperature: 97.8 F Blood Pressure: 116/66 Pulse: 68 Respirations: 18 Pulse Ox (%): 95 Assessment & Plan Physician Review Additional Text: Physical Exam General: Oriented x3, NAD HEENT: Sclera anicteric, normal conjunctiva Respiratory: nonlabored on 6L NC Cardiovascular: Regular rate/rhythm, Normal S1 S2 Gastrointestinal: Soft and benign, nontender Neurological: Moves all extremities, normal affect, normal speech Problem list Acute hypoxemic respiratory failure secondary to COVID-19 pneumonia Morbid obesity Continue treatment per Covid protocol, steroids, oxygen supplementation, vitamin supplementation Significantly elevated inflammatory markers on admission. Continue baricitinib Inflammatory markers improving Wean oxygen as tolerated down to 6L NC Dobbhoff removed 11/24, tolerating PO Pulmonology consulted VTE: Eliquis Code: full Dispo: anticipate discharge home with home O2 in ~1-2 days Time Spent Managing Pts Care (In Minutes): 40
[2020-11-27 18:20] VITALS: BMI 42.7
[2020-11-27] MEDS: LORazepam 2 MG/ML VIAL IV PRN (21:56)
[2020-11-28 06:17] LABS: BUN Blood Urea Nitrogen 17 mg/dL (7-18); Bicarbonate 31 mmol/L (21-32); C-Reactive Protein 6.55 mg/L (<3.00); Ferritin 247.6 ng/mL (8-388); Glucose Level 159 mg/dL (74-106); Potassium 4.6 mmol/L (3.5-5.1); Sodium Level 139 mmol/L (136-145)
[2020-11-28] MEDS: INSULIN -REGULAR HUMAN 50 UNIT/0.5 ML ML SQ SCH ×4 (07:30→19:38)
[2020-11-28] MEDS: ASPIRIN EC 81 MG TAB PO SCH (08:20)
[2020-11-28] MEDS: THIAMINE HCL 100 MG TABLET PO SCH ×2 (08:20→19:38)
[2020-11-28] MEDS: METHYLPREDNISOLONE 125 MG INJ IV SCH ×3 (08:20→19:39)
[2020-11-28] MEDS: APIXABAN 2.5 MG TABLET PO SCH ×2 (08:21→19:37)
[2020-11-28] MEDS: BUSPIRONE HCL 15 MG TABLET PO SCH ×2 (08:21→19:37)
[2020-11-28] MEDS: FAMOTIDINE 20 MG TAB PO SCH ×2 (08:21→19:38)
[2020-11-28] MEDS: BARICITINIB 2 MG TABLET PO SCH (08:21)
[2020-11-28] MEDS: ZINC SULFATE 220 MG CAP PO SCH (08:21)
[2020-11-28] MEDS: ASCORBIC ACID 500 MG TABLET PO SCH (08:21)
--- NOTE | 2020-11-28 13:53 | P.PN ---
Subjective Date of Service: 11/28/20 Chief Complaint: COVID-19 disease management Subjective: Improving (Down to 4 L nasal cannula this morning, however hypoxic down to 60s with minimal movement/standing. Appetite improving) Review of Systems 10-point ROS is otherwise unremarkable Physical Examination - Vital Signs Temperature: 98.3 F Blood Pressure: 124/75 Pulse: 90 Respirations: 23 Pulse Ox (%): 87 Assessment & Plan Physician Review Additional Text: Physical Exam General: Oriented x3, NAD HEENT: Sclera anicteric, normal conjunctiva Respiratory: nonlabored on 4L NC Cardiovascular: Regular rate/rhythm, Normal S1 S2 Gastrointestinal: Soft and benign, nontender Neurological: Moves all extremities, normal affect, normal speech Problem list Acute hypoxemic respiratory failure secondary to COVID-19 pneumonia Morbid obesity Continue treatment per Covid protocol, steroids, oxygen supplementation, vitamin supplementation Significantly elevated inflammatory markers on admission. Continue baricitinib Inflammatory markers improving Consistently improving, down to 4 L nasal cannula this morning Patient with fairly quick hypoxia with minimal movement, and taking several minutes to bring back up to 88-90% Dobbhoff removed 11/24, tolerating PO Pulmonology consulted VTE: Eliquis Code: full Dispo: anticipate discharge home with home O2 tomorrow if does not get as hypoxic Time Spent Managing Pts Care (In Minutes): 40
[2020-11-28] MEDS: LORazepam 2 MG/ML VIAL IV PRN (19:44)
[2020-11-29 04:18] LABS: Hematocrit 38.5 % (36.0-45.0); MPV 7.3 fL (7.6-11.3); RBC Red Blood Cell Count 4.64 M/uL (3.86-4.86)
[2020-11-29 04:43] LABS: C-Reactive Protein 3.59 mg/L (<3.00); Ferritin 231.4 ng/mL (8-388); Potassium 4.8 mmol/L (3.5-5.1)
[2020-11-29] MEDS: INSULIN -REGULAR HUMAN 50 UNIT/0.5 ML ML SQ SCH ×3 (07:30→15:53)
[2020-11-29] MEDS: APIXABAN 2.5 MG TABLET PO SCH (08:08)
[2020-11-29] MEDS: THIAMINE HCL 100 MG TABLET PO SCH (08:08)
[2020-11-29] MEDS: ZINC SULFATE 220 MG CAP PO SCH (08:08)
[2020-11-29] MEDS: METHYLPREDNISOLONE 125 MG INJ IV SCH ×2 (08:08→14:40)
[2020-11-29] MEDS: ASCORBIC ACID 500 MG TABLET PO SCH (08:08)
[2020-11-29] MEDS: ASPIRIN EC 81 MG TAB PO SCH (08:08)
[2020-11-29] MEDS: FAMOTIDINE 20 MG TAB PO SCH (08:08)
[2020-11-29] MEDS: BARICITINIB 2 MG TABLET PO SCH (08:31)
[2020-11-29] MEDS: BUSPIRONE HCL 15 MG TABLET PO SCH (08:31)
[2020-11-29 12:01] VITALS: O2SAT 93
--- NOTE | 2020-11-29 16:37 | P.DS ---
Admission Date: 11/21/20 Discharge Date: 11/29/20 Disposition: ROUTINE DISCHARGE Discharge Condition: FAIR Reason for Admission: COVID-19 disease management - Problems (1) Acute respiratory failure with hypoxia Status: Acute (2) Pneumonia due to COVID-19 virus Status: Acute Brief History of Present Illness: 45-year-old female patient with no significant medical history presented to the ED due to shortness of breath and lethargy. She was diagnosed with COVID-19 disease at [place] emergency room 6 days prior. Other symptoms she had included general body ache, weakness, shortness of breath and cough. She was found to have significant hypoxia with pulse oximetry of 71% on room air so she was started on BiPAP therapy. Imaging studies done in the ER was concerning for severe COVID-19 disease chest x-ray showed bilateral opacification depicting pneumonia. Patient admitted for further management. Hospital Course: Patient admitted to the medical floor and treated with IV steroid, vitamin supplementation and zinc supplementation for COVID protocol. She required up to 6 L of oxygen by nasal canula. Inflammatory markers were elevated. Patient seen in consultation by Dr. Colvin-pulmonary. She was treated with Baracitinib. Her oxygen requirements improved with treatment along with improvement inflammatory markers. Patient is now tolerating 3-4 L of oxygen by nasal canula. She has clinically improved and deemed stable for discharge. Home oxygen has been arranged. Vital Signs/Physical Exam: Temp Pulse Resp BP Pulse Ox 97.1 F 87 22 H 131/94 H 95 11/29/20 12:00 11/29/20 12:00 11/29/20 12:00 11/29/20 12:00 11/29/20 12:00 General: Alert, In no apparent distress, Oriented x3 HEENT: Mucous membr. moist/pink Neck: JVD not distended Respiratory: Other (Nonlabored breathing) Cardiovascular: Regular rate/rhythm, Normal S1 S2 Gastrointestinal: Soft and benign, Non-distended Musculoskeletal: No swelling Integumentary: No rashes Neurological: Normal strength at 5/5 x4 extr Laboratory Data at Discharge: WBC 11.50 K/uL (4.3-10.9) H D 11/29/20 03:42 Hgb 12.5 g/dL (12.0-15.0) 11/29/20 03:42 Hct 38.5 % (36.0-45.0) 11/29/20 03:42 Plt Count 331 K/uL (152-406) 11/29/20 03:42 PT 13.6 SECONDS (9.5-12.5) H 11/21/20 14:54 INR 1.18 11/21/20 14:54 Sodium 140 mmol/L (136-145) 11/29/20 03:42 Potassium 4.8 mmol/L (3.5-5.1) 11/29/20 03:42 BUN 20 mg/dL (7-18) H 11/29/20 03:42 Creatinine 0.74 mg/dL (0.55-1.3) 11/29/20 03:42 Glucose 163 mg/dL (74-106) H 11/29/20 03:42 Magnesium 2.3 mg/dL (1.8-2.4) 11/25/20 03:52 Total Bilirubin 0.3 mg/dL (0.2-1.0) 11/23/20 02:07 AST 70 U/L (15-37) H 11/23/20 02:07 ALT 119 U/L (12-78) H 11/23/20 02:07 Alkaline Phosphatase 75 U/L (45-117) 11/23/20 02:07 Home Medications: Buspirone HCl 15 mg PO BID 11/23/20 Apixaban [Eliquis *] 2.5 mg PO BID #60 tablet 11/29/20 Ascorbic Acid [Vitamin C] 1,000 mg PO TID #90 tablet 11/29/20 Famotidine [Pepcid*] 20 mg PO BID #60 tab 11/29/20 Thiamine HCl [Vitamin B-1*] 200 mg PO BID #120 tablet 11/29/20 Zinc Sulfate [Zinc Sulfate*] 220 mg PO DAILY #30 cap 11/29/20 predniSONE [Prednisone*] 20 mg PO BID #21 tab 11/29/20 New Medications: Apixaban [Eliquis *] 2.5 mg PO BID #60 tablet Famotidine [Pepcid*] 20 mg PO BID #60 tab predniSONE [Prednisone*] 20 mg PO BID #21 tab Thiamine HCl [Vitamin B-1*] 200 mg PO BID #120 tablet Ascorbic Acid [Vitamin C] 1,000 mg PO TID #90 tablet Zinc Sulfate [Zinc Sulfate*] 220 mg PO DAILY #30 cap Diet: AHA Activity: Ad michelle Followup: Hussein Colvin MD [ACTIVE - CAN ADMIT] - 1 Week NONE,NONE [Primary Care Provider] - Time spent managing pt's care (in minutes): 42
[2020-11-29 18:08] VITALS: BP 123/91; TEMP 97
== END 2020-11-29 17:55 | disposition home or self-care (01) | DRG 177 ==
LOC: ER 14:01 → ERHOLD 17:36 → 4TH 11-23 13:08
PROVIDERS: ADMIT Hospitalist; ATTEND Internal Medicine Nephrology
PROC: 5A09357 Assistance with Respiratory Ventilation, Less than 24 Consecutive Hours, Continuous Positive Airway Pressure (ICD-10-PCS; principal; 2020-11-21)
DX: U07.1 COVID-19 (principal); J12.82 Pneumonia due to coronavirus disease 2019; J96.01 Acute respiratory failure with hypoxia; Z68.41 Body mass index [BMI] 40.0-44.9, adult; E66.01 Morbid (severe) obesity due to excess calories; F41.9 Anxiety disorder, unspecified
CPT/HCPCS: 36415; 71045; 74018; 80048; 80053; 80076; 81001; 82728; 82947; 83735; 84145; 85025; 85027; 85379; 85610; 86140; 94002; 94003; 94010; 94660; 94760; 96374; 99284; J0456; J0696; J1100; J1170; J1650; J2270; J2920; J2930; J7050; U0003